=== PATIENT | female | born 1950 | race Caucasian/White ===

== ENCOUNTER 2022-10-12 08:34 | Emergency (ER) | payer BC ==
[~2022-10-12] VITALS: Ht 175.3 cm; Wt 70.5 kg
--- NOTE | 2022-10-12 09:49 | NUR ---
PER DR MONCADA, PT HAS WALKER AT HOME, ORTHO ORDERS NOT NEEDED AT THIS TIME
[2022-10-12] MEDS ORDERED: HYDR-3965 PO ×2 (09:58→10:04)
[2022-10-12 10:12] VITALS: BP 140/84
== END 2022-10-12 10:15 | disposition home or self-care (01) ==
LOC: ER 08:35
DX: M25.552 Pain in left hip (principal); W19.XXXA Unspecified fall, initial encounter; Y93.89 Activity, other specified; Y92.89 Other specified places as the place of occurrence of the external cause; Y99.8 Other external cause status
CPT/HCPCS: 73502; 99284